=== PATIENT | male | born 2005 | race Caucasian/White ===

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

== ENCOUNTER 2025-03-08 16:44 | Outpatient (REF) | payer BC, SELFPAY ==
[2025-03-08 18:11] LABS: Lithium 0.19 mmol/L (0.60-1.20)
--- OUTSIDE RECORDS SUMMARY | 2025-03-08 18:29 | XMS_ITS | Encounter Summary ---
Author Organization [facility] Address [address] [place] [id number] Phone Care Team Providers Care Wharf Attendant Name Role Phone Saira Arshad MD Primary Care Provider [phone] Encounter Details Date Type Department Care Team (Late st Contact Info) Description 10/17/2015 Documentation [facility] [place] Family Medicine [address] [place] [address] Family Medicine, Physician [address] [place] [address] Social History Tobacco Use Types Packs/Day Years Used Date Smoking Tobacco: Never Assessed Sex and Gender Information Value Date Recorded Sex Assigned at Male 06/01/2020 9:31 AM EST Legal Sex Male 5:12 PM EDT Gender Identity Male 06/01/2020 9:31 AM EST Sexual Orientation Straight 06/01/2020 9: 31 AM EST documented as of this encounter Plan of Treatment Not on file documented as of this encounter Visit Diagnoses Not on filedocumented in this encounter Care Teams Wharf Attendant Relationship Specialty Start Date End Date Saira Arshad MD [address] [place] [id number] PCP - General Pediatrics 07/07/19 11/29/24 documented as of this encounter
--- OUTSIDE RECORDS SUMMARY | 2025-03-08 18:29 | XMS_ITS | Encounter Summary ---
Author Organization [facility] Address [address] [place] [phone] Phone Care Team Providers Care Gold Frame Assembler Name Role Phone Saira Arshad MD Primary Care Provider [phone] Encounter Details Date Type Department Care Team (Late st Contact Info) Description 04/01/2012 Documentation [facility] [place] [address] [place] [address] Family Medicine, Physician [address] [place] [address] Social History Tobacco Use Types Packs/Day Years [...] on filedocumented in this encounter Care Teams Gold Frame Assembler Relationship Specialty Start Date End Date Saira Arshad MD [address] [place] [id number] PCP - General Pediatrics 07/07/19 11/29/24 documented as of this encounter
--- OUTSIDE RECORDS SUMMARY | 2025-03-08 18:29 | XMS_ITS | Encounter Summary ---
Author Organization [facility] Address [address] [place] [phone] Phone Care Team Providers Care Senior Counsel Name Role Phone Saira Arshad MD Primary Care Provider [phone] Encounter Details Date Type Department Care Team (Late st Contact Info) Description 04/12/2015 Documentation [facility] [place] [address] [place] [address] Family Medicine, Physician [address] [place] [address] Social History Tobacco Use Types Packs/Day Years [...] on filedocumented in this encounter Care Teams Senior Counsel Relationship Specialty Start Date End Date Saira Arshad MD [address] [place] [id number] PCP - General Pediatrics 07/07/19 11/29/24 documented as of this encounter
--- OUTSIDE RECORDS SUMMARY | 2025-03-08 18:29 | XMS_ITS | Encounter Summary ---
Author Organization [facility] Address [address] [place] [phone] Phone Care Team Providers Care Plumber Name Role Phone Saira Arshad MD Primary Care Provider [phone] Encounter Details Date Type Department Care Team (Late st Contact Info) Description 10/23/2010 Documentation [facility] [place] [address] [place] [address] Family Medicine, Physician [address] [place] [address] Social History Tobacco Use Types Packs/Day Years [...] on filedocumented in this encounter Care Teams Plumber Relationship Specialty Start Date End Date Saira Arshad MD [address] [place] [id number] PCP - General Pediatrics 07/07/19 11/29/24 documented as of this encounter
--- OUTSIDE RECORDS SUMMARY | 2025-03-08 18:29 | XMS_ITS | Clinical Summary ---
Author Organization [facility] Address [address] [place] [phone] Phone Care Team Providers Care Orthotic Finish Grinding Technician Name Role Phone Unavailable Primary Care Provider Unavailabl e Allergies No known active allergies Medications traZODone 50 MG tablet TAKE 1 TABLET BY MOUTH AT BEDTIME NEEDED FOR INSOMNIA 2 Active lamoTRIgine 25 MG tablet TAKE 1 TABLET BY MOUTH TWICE A DAY PLEASE STOP IF RASH DEVELOPS 2 Active busPIRone 10 MG tablet TAKE 1 TABLET BY MOUTH TWICE A DAY DOSE INCREASED 2 Active FLUoxetine 20 MG capsule TAKE 1 CAPSULE BY MOUTH ONCE A DAY *DOSE INCREASE 2 Active LORazepam 0.5 MG tablet Take 0.5 mg by mouth 2 (two) times a day as needed. 2 Active Active Problems Problem Noted Date Diagnosed Date Anxiety and depression 02/20/2022 Overview (03/14/2022): 03/14/2022 (age 16yr 2mo): Anxiety/depression/bipolar now treated by psychiatrist Dr. Matilda Driscoll virtually from [place]. Continues with therapist weekly Julianna Ugalde through [facility]. Current meds are Lamictal, Buspar, Prozac , trazodone, and ativan PRN. Detailed History and Chronology of care: 03/14/2022 (age 16yr 2mo): Anxiety/depression/bipolar now treated by psychiatrist Dr. Matilda Driscoll virtually from [place]. Continues with therapist weekly Julianna Ugalde through [facility]. Current meds are Lamictal, Buspar, Prozac , trazodone, and ativan PRN. Assessment & Plan (03/14/2022 5:11 PM EDT): 03/14/2022 (age 16yr 2mo): Anxiety/depression/bipolar now treated by psychiatrist Dr. Matilda hadley from [place]. Continues with therapist lonnie Ugalde through [facility]. Current meds are Lamictal, Buspar, Prozac , trazodone, and ativan PRN. Assessment & Plan (02/27/2022 9:10 AM EDT): 02/27/2022 (age 16yr 2mo): Hydroxyzine trial over the weekend seems promising to help as he awaits psych. Helped him sleep and 'relax in his chest. Nagi is having severe anxiety with thoughts of self harm in the context of possible rapid cycling bipolar. SCARED 56 02/20/2022. Anxiety seems to center around school despite reports that everything at school is 'perfect'. He has had panic attacks where 'he feels like feral animal inside trying to escape it overwhelms me and I feel like I'm crumbling'. Thoughts of self harm/intrusive thoughts where he thinks about 'crushing his skull and squashing his brain'. + contracts for safetly, no plan despite intrusive thoughts. In general he does not sleep or eat well. He has been able to go to school and complete school work despite this. Nagi and his mother are not interested in [facility]AP[facility] consult or partial hospitalization and wish to avoid calling crisis or needing inpatient care. - Mom had requested ativan while Nagi is awaiting a psychiatrist through [facility],, which I declined to give. - trial of hydoxyzine 25 mg promising: Will use 1 tab lower school music teacher, 1 after school if needed, 2-3 tabs qhs, and 1 tab for awakening at night PRN. The goal is improvement in anxiety during the day without drowsiness, and improved sleep at night. - hoping for psychiatry appt within 1 month at [facility] - Has therapist Julianna Ugalde through [facility] - See MCPAP phone note for other recs. - will call therapist once release is in the chart - offer follow up with me in 2 weeks Assessment & Plan (02/21/2022 11:23 AM EDT): 02/20/2022 (age 16yr 2mo): Nagi is having severe anxiety with thoughts of self harm in the context of possible rapid cycling bipolar. SCARED 56. Anxiety seems to center around school despite reports that everything at school is 'perfect'. He is having panic attacks' feels like feral animal inside trying to escape it overwhelms me and I feel like I'm crumbling'. And thoughts of self harm/intrusive thoughts where he thinks about 'crushing his skull and squashing his brain'. + contracts for safetly, no plan despite intrusive thoughts. He is not sleeping and not eating well. He has been able to go to school and complete school work despite this. Nagi and his mother are not interested in MCAPAP consult or partial hospitalization and wish to avoid calling crisis or needing inpatient care. - Mom requesting ativan while Nagi is awaiting a psychiatrist through [facility],, which I have declined to give. - hoping for psychiatry appt within 1 month at [facility] - Has therapist Julianna Ugalde through [facility] - will try hydroxyzine as suggest by [facility] yesterday - will call [facility] for other recs. - will call therapist once release is in the chart - offer follow up with me in 1 week. COVID-19 virus infection 10/24/2021 Overview (10/24/2021): 10/24/2021 (age 15yr 10mo): See phone note. Symptoms and positive rapid antigen test. Weight loss 09/05/2021 Overview (09/11/2021): 09/08/2021 (age 15yr 8mo): Weight loss of 11 lbs over one month. Having GI upset sine 02/2022 - lower abd pain, loose stools, reflux,, and more recently vomiting. Mostly but not always in AM, any day of the week. Pepcid helps with reflux sensation - check KUB (Hx constipation) - check labs - consider 8 weeks of prevacid if KUB negative - follow up 2 months, check weight. - may need GI referral 09/11/2021 (age 15yr 8mo): : KUB normal, labs normal. Spoke with Mom about normal KUB on 09/08/2021. Labs normal as of today. Will trial pepcid 20 mg BID x 8 weeks. Weight check no scheduled in 2 months as requested. Message to triage to try to reach Nagi's mother. Assessment & Plan (09/11/2021 2:15 PM EDT): 09/11/2021 (age 15yr 8mo): : KUB normal, labs normal. Spoke with Mom about normal KUB on 09/08/2021. Labs normal as of today. Will trial pepcid 20 mg BID x 8 weeks. Weight check no scheduled in 2 months as requested. Message to triage to try to reach Nagi's mother. Assessment & Plan (09/08/2021 1:00 PM EDT): 09/05/2021 (age 15yr 8mo): Weight loss of 11 lbs over one month. Having GI upset sine 02/2022 - lower abd pain, loose stools, reflux,, and more recently vomiting. Mostly but not always in AM, any day of the week. Pepcid helps with reflux sensation - check KUB (Hx constipation) - check labs - consider 8 weeks of prevacid if KUB negative - follow up 2 months, check weight. - may need GI referral Assessment & Plan (09/05/2021 1:01 PM EDT): 09/05/2021 (age 15yr 8mo): Weight loss of 11 lbs over one month. Having GI upset (vomiting, diarrhea) possible due to anxiety. Needs OV to discuss GI symptoms in detail. COVID-19 vaccination refused 06/12/2021 Overview (06/12/2021): 06/12/2021 (age 15yr 5mo): Nagi 's parent or guardian refused vaccination despite strong recommendation for immunization during the covid 19 pandemic. Bipolar affective disorder, mixed 06/12/2021 Overview (03/14/2022): 03/14/2022 (age 16yr 2mo): Anxiety/depression/bipolar now treated by psychiatrist Dr. Matilda Driscoll virtually from [place]. Continues with therapist weekly Julianna Ugalde through [facility]. Current meds are Lamictal, Buspar, Prozac , trazodone, and ativan PRN. Detailed History and Chronology of care: 06/12/2021 (age 15yr 5mo): Significant mood swing. Sometimes feels on top of the world, and then 'can't move'. Flip flops 80 times per day. Per mom struggles with depression then has the manic piece with excessive energy, then can be in a total slump. Very sensitive to criticism from others. Father has undiagnosed mental illness. (homeless, in a assisted). Denies SI, contracts for Safety. Mom also suspects ADHD. WHO done by Dr Nevarez. Follow up with me to discuss further. May need MCPAP vs BACC referral. 03/14/2022 (age 16yr 2mo): Anxiety/depression/bipolar now treated by psychiatrist Dr. Matilda Driscoll virtually from [place]. Continues with therapist weekly Julianna Ugalde through [facility]. Current meds are Lamictal, Buspar, Prozac , trazodone, and ativan PRN. Assessment & Plan (03/14/2022 5:11 PM EDT): 03/14/2022 (age 16yr 2mo): Anxiety/depression/bipolar now treated by psychiatrist Dr. Matilda Driscoll virtually from [place]. Continues with therapist weekly Julianna Ugalde through [facility]. Current meds are Lamictal, Buspar, Prozac , trazodone, and ativan PRN. Assessment & Plan (02/27/2022 9:01 AM EDT): 02/27/2022 (age 16yr 2mo): No change. 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 In therapy Julianna wright . Awaiting psychiatry. 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 In therapy normal [facility], Julianna Ugalde . He is having intrusive thoughts 'there is no peacefulness, no tranquility', 'thinks about crushing his skull and squashing his brain'. Awaiting psychiatry. Assessment & Plan (09/05/2021 12:52 PM EDT): 09/05/2021 (age 15yr 8mo): Significant symptoms suggestive of rapid cycling bipolar and anxiety. Has therapy [facility] with Karon and is moving toward long there therapy. Anxiety seems to be causing GI Sx and weight loss. Hx SI, has safety plan. Needs f/u for medical eval for GI symptoms. - Likely will need medical treatment through psychiatry, mom is working on it. - Mom to get anxiety added to IEP for missed school. Assessment & Plan (06/12/2021 5:50 PM EST): 06/12/2021 (age 15yr 5mo): Significant mood swing. Sometimes feels on top of the world, and then 'can't move'. Flip flops 80 times per day. Per mom struggles with depression then has the manic piece with excessive energy, then can be in a total slump. Very sensitive to criticism from others. Father has undiagnosed mental illness. (homeless, in a assisted). Denies SI, contracts for Safety. Mom also suspects ADHD. WHO done by Dr Nevarez. Follow up with me to discuss further. May need MCPAP vs BACC referral. Dyslexia 11/11/2014 Overview (06/12/2021): 06/12/2021 (age 15yr 5mo): Has IEP, doing well with services. Assessment & Plan (06/12/2021 5:49 PM EST): 06/12/2021 (age 15yr 5mo): Has IEP, doing well with services. Pure hypercholesterolemia 06/23/2013 Overview (06/12/2021): 08/23/2020: Saw Dr. rosas for high cholesterol. Recommended lifestyle changes, f/u 2 months (10/2020), and 6 months (02/2021) with fasting labs. 06/12/2021 (age 15yr 5mo): Plans to go back for follow up appointment with Dr. Rosas. Detailed History and Chronology of care: 06/01/2021: Total cholesterol 230, LDL 155 08/21/2017: Total Cholesterol 234 LDL 163 Assessment & Plan (06/12/2021 5:49 PM EST): 06/12/2021 (age 15yr 5mo): Plans to go back for follow up appointment with Dr. Rosas. BMI pediatric, greater than or equal to 95% for age 1105/01/2011 Overview (06/12/2021): 06/12/2021 (age 15yr 5mo): Has lost 7 labs over 3 months. Trying not to overeat. Assessment & Plan (06/12/2021 5:49 PM EST): 06/12/2021 (age 15yr 5mo): Has lost 7 labs over 3 months. Trying not to overeat. Immunizations Immunization Administration Dates Next Due DTaP 02/28/2010 DTaP / Hep B / IPV 06/20/2005,04/24/2005, 005 DTaP 5 05/27/2006 Hep B, ped/adol 2004 Hib (HbOC) 04/24/2005,02/19/2005 Hib (PRP-T) 05/27/2006,06/20/2005 IPV 02/28/2010 Influenza Split 05/01/2011 Influenza, injectable, quadr ivalent, preservative free 06/12/2021,06/01/2020 Influenza, injectable, trivalent 06/13/2009,05/10 Influenza, intranasal, quadrivalent 05/10/2014 Influenza, intranasal, trivalent 05/28/2012,02/09 MMR 02/28/2010,12/25/2005 Meningococcal Conj (Menactra) MCV4P 02/22/2021 Pneumococcal Conjugate 05/27/2006,2005,04/24/2005,02/19 Tdap 02/04/2017 Varicella 02/28/2010,12/25/2005 Family History Medical History Relation Name Comments Congenital heart disease Mother Glenny Hyperlipidemia Mother Glenny Pain Mother Glenny Stroke Mother Glenny Relation Name Status Comments Brother Maxwell Alive Brother: Alive and well, Strabismus/amblyopia Father Alive Father: Alive a nd well Maternal Grandmother Alive Materna l aunt: Migraines Mother Glenny Alive Mother: mild st roke 2011, Hyperlipidemia, Migraines Other Family history of *Dental caries, No family history of *Heart Disease, Family history of *Sudden /VA under 55, Family history of *CVA/Stroke Paternal Grandfather Paterna l grandfather: Congenital heart disease, Diabetes mellitus Social History Tobacco Use Types Packs/Day Years Used Date Smoking Tobacco: Never Smokeless Tobacco: Never Alcohol Use Standard Drinks/Week Comments Never 0 (1 standard drink = 0.6 oz pur e alcohol) Hunger/Food Answer Date Recorded In the last 12 months, did y ou or your family ever eat less than you felt you should because there wasn't enough money for food? No 06/01/2020 Stable Housing Answer Date Recorded Are you worried that in the next 2 months you may not have stable housing? No 06/01/2020 Transportation Concerns Answer Date Rec orded In the last 12 months, have you or your family ever had to go without healthcare because you didn't have a way to get there? No 06/01/2020 Hazards in Home Answer Date Recorded Think about the place you li ve. Do you have problems with any of the following? Pests (mice or roaches), mold, no/not working smoke detectors, water leaks, no window guards. No 2019 Financing Utilities Answer Date Recorde d In the last 12 months, has t he electric, gas, oil, or water company threatened to shut off your services in your home? No 06/01/2020 Safety at Home Answer Date Recorded Are you or your family worried about feeling saf e in your home? No 06/01/2020 Outside Support Answer Date Recorded Do you feel that you need mo re support from other people or programs to help you care for yourself or your family? No 06/01/2020 Understanding Health Concerns Answer Da te Recorded Do you need help understandi ng your or your child's healthcare needs (diagnosis, medications, plan, etc.)? No 06/01/2020 Financing Health Concerns Answer Date R ecorded In the last 12 months, was t here a time when your child needed to see a doctor or get medications or supplies but could not because of cost? No 06/01/2020 Missing School or Work Answer Date Gus rded Did you or your child miss s chool or work because of a health problem that could have been avoided? No 06/01/2020 Sex and Gender Information Value Date Recorded Sex Assigned at Male 06/01/2020 9:31 AM EST Legal Sex Male 5:12 PM EDT Gender Identity Male 06/01/2020 9:31 AM EST Sexual Orientation Straight 06/01/2020 9: 31 AM EST Last Filed Vital Signs Vital Sign Reading Time Taken Comments Blood Pressure 113/63 01/10/2022 9:57 AM EDT Pulse 72 01/10/2022 9:57 AM EDT Temperature 36.7 C (98 F) 05/11/2022 10:40 AM EST Respiratory Rate - - Oxygen Saturation 96% 07/04/2018 11:33 AM EST Inhaled Oxygen Concentration - - Weight 94.9 kg (209 lb 3.2 oz) 05/11/2022 10:40 AM EST Height 179.3 cm (5' 10.6 ) 01/08/2022 11:05 AM E DT Body Mass Index - - Plan of Treatment Health Maintenance Due Date Last Done Comments HPV Vaccines (1 - Male 3-dose series) 12/15/2019 Men B Vaccine (1 of 2 - Standard) 2020 Influenza Vaccines (#1) 2025 06/12/19, 06/01/2020, 05/10/2014, Additional history exists COVID-19 Vaccine (3 - season) 2025 11/16/2020, 10/26/2020 DTaP,Tdap,and Td Vaccines (7 - Td or Tdap) 02/04/2027 02/04/2017, 02/28/2010, 05/27/2006, Additional history exists Hepatitis B Vaccines Completed 06/20/2005, 04/24/2005, 02/19/2005, Additional history exists HIB Vaccines Completed 05/27/2006, 06/10, 04/24/2005, Additional history exists Pneumococcal Vaccine Completed 05/27/2006, 06/20/2005, 04/24/2005, Additional history exists IPV Vaccines Completed 02/28/2010, 06/10, 04/24/2005, Additional history exists MMR Vaccines Completed 02/28/2010, 12/25/2005 Varicella Vaccines Completed 02/28/2010, 12/25/2005 Meningococcal Vaccine Completed 02/22/2021 Hepatitis A Vaccines Aged Out No long er eligible based on patient's age to complete this topic
--- OUTSIDE RECORDS SUMMARY | 2025-03-08 18:29 | XMS_ITS | Encounter Summary ---
Author Organization [facility] Address [address] [place] [address] Phone Care Team Providers Care Certified Pesticide Applicator Name Role Phone Saira Arshad MD Primary Care Provider [phone] Encounter Details Date Type Department Care Team (Late st Contact Info) Description 01/24/2017 Conversion Encounter [facility] [address] [place] [address] Social History Tobacco Use Types Packs/Day Years [...] on filedocumented in this encounter Care Teams Certified Pesticide Applicator Relationship Specialty Start Date End Date Saira Arshad MD [address] [place] [address] PCP - General Pediatrics 07/07/19 11/29/24 documented as of this encounter
== END 2025-03-08 16:45 | disposition home or self-care (01) ==
LOC: HO.LAB 16:44
PROVIDERS: Visit Provider Psychiatry & Neurology Psychiatry
DX: F31.0 Bipolar disorder, current episode hypomanic (principal); Z79.899 Other long term (current) drug therapy
CPT/HCPCS: 36415; 80178

== ENCOUNTER 2025-03-29 15:25 | Outpatient (REF) | payer BC, SELFPAY ==
--- OUTSIDE RECORDS SUMMARY | 2025-03-29 19:42 | XMS_ITS | Encounter Summary ---
Author Organization [facility] Address [address] [place] [address] Phone Care Team Providers Care Physician Allergist Immunologist Name Role Phone Saira Arshad MD Primary Care Provider [phone] Encounter Details Date Type Department Care Team (Late st Contact Info) Description 04/01/2012 [place]ation [facility] [place] [address] [place] [address] Family Medicine, Physician [address] [place] [address] Social History Tobacco Use Types Packs/Day Years [...] on filedocumented in this encounter Care Teams Physician Allergist Immunologist Relationship Specialty Start Date End Date Saira Arshad MD [address] [place] [id number] PCP - General Pediatrics 07/07/19 11/29/24 documented as of this encounter
--- OUTSIDE RECORDS SUMMARY | 2025-03-29 19:42 | XMS_ITS | Encounter Summary ---
Author Organization [facility] Address [address] [place] [address] Phone Care Team Providers Care Policy Issue Clerk Name Role Phone Saira Arshad MD Primary Care Provider [phone] Encounter Details Date Type Department Care Team (Late st Contact Info) Description 01/24/2017 Conversion Encounter [facility] [address] [place] [address] Social History Tobacco Use Types Packs/Day Years [...] on filedocumented in this encounter Care Teams Policy Issue Clerk Relationship Specialty Start Date End Date Saira Arshad MD [address] [place] [address] PCP - General Pediatrics 07/07/19 11/29/24 documented as of this encounter
--- OUTSIDE RECORDS SUMMARY | 2025-03-29 19:42 | XMS_ITS | Encounter Summary ---
Author Organization [facility] Address [address] [place] [address] Phone Care Team Providers Care Quality Control Name Role Phone Saira Arshad MD Primary Care Provider [phone] Encounter Details Date Type Department Care Team (Late st Contact Info) Description 10/23/2010 Documentation [facility] [place] [facility] [address] [place] [address] Family Medicine, Physician [address] [place] [address] Social History Tobacco Use Types Packs/Day Years [...] on filedocumented in this encounter Care Teams Quality Control Relationship Specialty Start Date End Date aSira Arshad MD [address] [place] [id number] PCP - General Pediatrics 07/07/19 11/29/24 documented as of this encounter
--- OUTSIDE RECORDS SUMMARY | 2025-03-29 19:42 | XMS_ITS | Encounter Summary ---
Author Organization [facility] Address [address] [place] [address] Phone Care Team Providers Care Mud Jack Operator Name Role Phone Saira Arshad MD Primary Care Provider [phone] Encounter Details Date Type Department Care Team (Late st Contact Info) Description 04/12/2015 [place] [facility] [place] [address] [place] [address] Family Medicine, Physician [address] [place] [address] Social History Tobacco Use Types Packs/Day Years [...] on filedocumented in this encounter Care Teams Mud Jack Operator Relationship Specialty Start Date End Date Saira Arshad MD [address] [place] [phone] PCP - General Pediatrics 07/07/19 11/29/24 documented as of this encounter
--- OUTSIDE RECORDS SUMMARY | 2025-03-29 19:42 | XMS_ITS | Encounter Summary ---
Author Organization [facility] Address [address] [place] [address] Phone Care Team Providers Care Log Chain Feeder Name Role Phone Saira Arshad MD Primary Care Provider [phone] Encounter Details Date Type Department Care Team (Late st Contact Info) Description 10/17/2015 Documentation [facility] [place] [address] [place] [address] Family Medicine, Physician [address] [place] [address] Social History Tobacco Use Types Packs/Day Years [...] on filedocumented in this encounter Care Teams Log Chain Feeder Relationship Specialty Start Date End Date Saira Arshad MD [address] [place] [id number] PCP - General Pediatrics 07/07/19 11/29/24 documented as of this encounter
--- OUTSIDE RECORDS SUMMARY | 2025-03-29 19:42 | XMS_ITS | Clinical Summary ---
Author Organization [facility]'s Address [address] [place] [phone] Phone Care Team Providers Care Division Engineer Name Role Phone Unavailable Primary Care Provider [...] by psychiatrist Dr. Matilda Driscoll virtually from [place]. Continues with therapist weekly Julianna Ugalde through [facility]. Current meds are Lamictal, Buspar, Prozac , trazodone, and ativan PRN. Detailed History and Chronology of care: 03/14/2022 (age 16yr 2mo): Anxiety/depression/bipolar now treated by psychiatrist Dr. Matilda Driscoll virtually from [place]. Continues with therapist weekly Julianna Ugalde through [facility]. Current meds are Lamictal, Buspar, Prozac , trazodone, and ativan PRN. Assessment & Plan (03/14/2022 5:11 PM EDT): 03/14/2022 (age 16yr 2mo): Anxiety/depression/bipolar now treated by psychiatrist Dr. Matilda hadley from [place]. Continues with therapist lonnie Ugalde through [facility]. Current meds are Lamictal, Buspar, Prozac [...] while Nagi is awaiting a psychiatrist through [facility],, which I declined to give. 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 The goal is improvement in anxiety during the day without drowsiness, and improved sleep at night. - hoping for psychiatry appt within 1 month at [facility] - Has therapist Julianna Ugalde through [facility] - See [facility] phone note for [...] while Nagi is awaiting a psychiatrist through [facility],, which I have declined to give. - hoping for psychiatry appt within 1 month at [facility] - Has therapist Julianna Ugalde through [facility] - will try hydroxyzine as suggest by [facility] yesterday - [facility] - will call therapist [...] by psychiatrist Dr. Matilda Driscoll virtually from [place]. Continues with therapist weekly Julianna Ugalde through [facility]. Current meds are Lamictal, Buspar, Prozac [...] has undiagnosed mental illness. (homeless, in a halfway). Denies SI, contracts for Safety. Mom also suspects ADHD. WHO done by Dr Nevarez. Follow up with me to discuss further. May need [facility] vs [facility] referral. 03/14/2022 (age 16yr 2mo): Anxiety/depression/bipolar now treated by psychiatrist Dr. Matilda Driscoll virtually from [place]. Continues with therapist weekly Julianna Ugalde through [facility]. Current meds are Lamictal, Buspar, Prozac , trazodone, and ativan PRN. Assessment & Plan (03/14/2022 5:11 PM EDT): 03/14/2022 (age 16yr 2mo): Anxiety/depression/bipolar now treated by psychiatrist Dr. Matilda Driscoll virtually from [place]. Continues with therapist weekly Julianna Ugalde through [facility]. Current meds are Lamictal, Buspar, Prozac [...] bipolar disorder with severe anxiety. In therapy [place] guillaume, Julianna Ugalde . He is having [...] has undiagnosed mental illness. (homeless, in a halfway). Denies SI, contracts for [employer]. Mom also [...] of *Heart Disease, Family history of *Sudden /[place] under 55, Family history of *CVA/Stroke Paternal [...]
[2025-03-29 22:02] LABS: Lithium 0.38 mmol/L (0.60-1.20)
== END 2025-03-29 15:26 | disposition home or self-care (01) ==
LOC: HO.LAB 15:25
PROVIDERS: Visit Provider Psychiatry & Neurology Psychiatry
DX: F31.0 Bipolar disorder, current episode hypomanic (principal); Z79.899 Other long term (current) drug therapy
CPT/HCPCS: 36415; 80178

== ENCOUNTER 2025-04-26 10:30 | Outpatient (REF) | payer BC, SELFPAY ==
[2025-04-26 12:16] LABS: Lithium 0.50 mmol/L (0.60-1.20)
== END 2025-04-26 10:31 | disposition home or self-care (01) ==
LOC: HO.LAB 10:30
PROVIDERS: Visit Provider Psychiatry & Neurology Psychiatry
DX: Z51.81 Encounter for therapeutic drug level monitoring (principal); Z79.899 Other long term (current) drug therapy
CPT/HCPCS: 36415; 80178